=== PATIENT | male | born 1985 | race Caucasian/White ===

== ENCOUNTER 2018-05-25 21:32 | Observation (INO) | payer OTHER, SELFPAY ==
[2018-05-25 21:40] VITALS: BP 125/73; PULSE 63; RESP 16; TEMP 36.9; BMI 520.7
--- NOTE | 2018-05-25 22:04 | ED.ABDPAIN ---
HPI - Abdominal Pain General Chief Complaint: Abdominal Pain Stated Complaint: LOW ABD PAIN Time Seen by Provider: 05/25/18 22:04 Source: patient Mode of arrival: ambulatory Limitations: no limitations History of Present Illness HPI narrative: 33-year-old otherwise healthy male presents with a chief complaint of worsening right lower quadrant pain over the course of the day. He has a poor appetite and last ate about 4 hr prior to his arrival. He denies fever but is nauseated with poor appetite. His pain is much worse with motion and improves with rest. He denies any diarrhea or constipation. He denies dysuria, frequency or urgency. He denies any history of the same. He denies any penile discharge. He denies any trauma or injury. MD complaint: abdominal pain Onset (ago): hour(s) Pain Consistency: constant Location: RLQ Severity: moderate Quality: cramping and aching Radiation: none Migration to: no migration Relieving factors: rest Exacerbating factors: movement Associated symptoms: nausea and anorexia Related Data Home Medications Medication Instructions Recorded Confirmed No Known Home Medications 05/26/18 05/26/18 Allergies Allergy/AdvReac Type Severity Reaction Status Date / Time Penicillins Allergy Intermediate HIVES Verified 05/25/18 23:22 Review of Systems Review of Systems All systems reviewed & are unremarkable except as noted in HPI and below Constitutional Reports anorexia, Denies chills, Denies fever(s), Denies lethargy and Denies weakness Eyes Denies change in vision, Denies eye discharge, Denies irritation and Denies loss of vision ENT Ears, Nose, Mouth, and Throat: Denies change in voice, Denies neck pain and Denies sore throat Cardiovascular Denies chest pain, Denies irregular heart rhythm, Denies lightheadedness, Denies palpitations, Denies dyspnea, Denies dyspnea on exertion and Denies orthopnea Respiratory Denies cough, Denies dyspnea, Denies dyspnea on exertion and Denies wheezing Gastrointestinal Gastrointestinal: Reports abdominal pain, Denies change in bowel habits, Denies diarrhea, Reports nausea and Denies vomiting Genitourinary Denies hematuria, Denies flank pain, Denies urinary incontinence and Denies urinary urgency Musculoskeletal Denies neck pain Integumentary/Breasts Denies pruritus, Denies erythema, Denies rash and Denies wounds Neurologic Denies confusion, Denies loss of vision and Denies weakness Psychiatric Denies anxiety, Denies confusion, Denies depression, Denies homicidal ideation and Denies suicidal ideation Endocrine Denies palpitations Hematologic/Lymphatic Denies easy bruising Allergic/Immunologic Denies wheezing PFSH Medical History GERD (gastroesophageal reflux disease) (Acute) Surgical History S/P wrist surgery (Acute) Social History household members: spouse and children Smoking Status: Never smoker Exam Narrative Exam Narrative: 33-year-old male, obviously quite uncomfortable, clutching his right lower abdomen, knees bent Initial Vital Signs Initial Vital Signs: Vital Signs Temperature 98.4 F 05/25/18 21:40 Pulse Rate 63 05/25/18 21:40 Respiratory Rate 16 05/25/18 21:40 Blood Pressure 125/73 05/25/18 21:40 Const General: cooperative, well developed and acute distress Nutritional Appearance: well nourished Orientation: alert, awake, oriented x3 and not confused HENMT Head: normocephalic and atraumatic Ears: external ears normal and TM's normal bilaterally Nose: external nose normal and No nasal discharge Face and sinus: sinuses nontender, face symmetric, no sinus tenderness and No dry mucous membranes Mouth: oral mucosae normal and moist mucous membranes Teeth and gingiva: dentition normal Throat: tonsils normal and uvula midline Eyes General: appearance normal, both eyes and all related structures Eyelids: eyelids normal Conjunctivae: conjunctivae normal Sclera: sclerae normal Pupils: PERRL EOM: EOM intact bilaterally Resp Effort & Inspection: normal respiratory effort, able to speak in complete sentences, no respiratory distress and no use of accessory muscles Auscultation: clear to auscultation bilaterally, no rales, no rhonchi and no wheezes Cardio Rate: regular rate Rhythm: regular rhythm Heart Sounds: no click, no gallops, no murmurs and no rubs Pulses: normal peripheral pulses GI Inspection: normal to inspection Palpation: soft and tender (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, psoas, Rovsing's, localized peritonitis and pain with heel tap) Penis: normal penis Scrotum: scrotum normal Testes: normal Other: Patient examined while standing in no hernia present Back/Spine/Pelvis Back: No CVA tenderness Cervical Spine: cervical ROM normal and No pain with cervical ROM Thoracic/Lumbar Spine: thoracic and lumbar spine normal to inspection Skin General: no rashes or lesions noted, No jaundice and No petechiae Neuro General: alert, oriented x3, gait normal and no focal motor deficits Speech: speech normal Extrem General: full ROM, no clubbing, cyanosis or edema, no pedal edema and no calf tenderness Course Orders Ordered: ED Orders 05/25/18 22:21 CT abdomen pelvis w con Stat 05/26/18 01:39 Complete Blood Count AUTO DIFF Stat 05/26/18 04:28 Education, smoking cessation ONGOING Acetaminophen (Tylenol) 650 mg PO Q6HR PRN PRN Reason: As Needed for Fever/Mild Pain Last Admin: 05/26/18 06:05 Dose: 650 mg Sodium Chloride (Normal Saline 0.9%) 1,000 mls @ 100 mls/hr IV CONT TENA Last Admin: 05/26/18 04:59 Dose: 100 mls/hr Ketorolac Tromethamine (Toradol) 30 mg IV Q6HR PRN PRN Reason: Pain, Moderate (4-6) Stop: 05/31/18 04:30 Ondansetron HCl (Zofran) 4 mg IV Q8HR PRN PRN Reason: Nausea And Vomiting Last Admin: 05/26/18 06:54 Dose: 4 mg Pantoprazole Sodium (Protonix) 20 mg PO 0600 TENA Last Admin: 05/26/18 06:05 Dose: 20 mg Discontinued Medications Fentanyl (Sublimaze) 100 mcg IV NOW ONE Stop: 05/26/18 02:16 Last Admin: 05/26/18 02:25 Dose: 100 mcg Hydromorphone HCl (Dilaudid) 1 mg IV NOW ONE Stop: 05/25/18 22:12 Last Admin: 05/25/18 22:23 Dose: 1 mg Hydromorphone HCl (Dilaudid) 1 mg IV NOW ONE Stop: 05/25/18 22:49 Last Admin: 05/25/18 22:50 Dose: 1 mg Hydromorphone HCl (Dilaudid) 1 mg IV NOW ONE Stop: 05/26/18 00:17 Last Admin: 05/26/18 00:17 Dose: 1 mg Sodium Chloride (Normal Saline 0.9%) 1,000 mls @ 1,000 mls/hr IV BOLUS ONE Stop: 05/25/18 23:10 Last Infusion: 05/25/18 23:24 Dose: 0 mls/hr Admin: 05/25/18 22:23 Dose: 1,000 mls/hr Sodium Chloride (Normal Saline 0.9%) 1,000 mls @ 1,000 mls/hr IV BOLUS ONE Stop: 05/25/18 23:19 Last Admin: 05/25/18 23:00 Dose: Not Given Ketorolac Tromethamine (Toradol) 15 mg IV NOW ONE Stop: 05/26/18 03:40 Last Admin: 05/26/18 04:00 Dose: 15 mg Ketorolac Tromethamine (Toradol) 30 mg IV QID TENA Ondansetron HCl (Zofran) 4 mg IV Q4HR PRN PRN Reason: Nausea And Vomiting Last Admin: 05/25/18 22:23 Dose: 4 mg Ondansetron HCl (Zofran) 4 mg IV Q4HR PRN PRN Reason: Nausea And Vomiting Reevaluation(s) Reevaluation #1: Patient is physical exam is very concerning for appendicitis. Repeat doses of pain medications are not helping. Reevaluation #2: CT was unremarkable for appendicitis or other bothersome findings, initial white count remarkable, will repeat Vital Signs - 8 hr 05/26/18 00:20 05/26/18 04:25 Temperature 98.3 F 97.7 F Pulse Rate 65 61 Respiratory Rate 16 16 Blood Pressure 129/70 Blood Pressure [Left Arm] 126/73 Pulse Oximetry 100 100 MDM - Abdominal Pain Lab Data Result diagrams: 05/26/18 01:39 05/25/18 22:00 Lab Results 05/25/18 05/25/18 05/26/18 Range/Units 22:00 22:00 01:39 WBC 9.6 10.7 (4.5-11.0) X10^3/uL RBC 5.28 5.14 (4.5-5.9) X10^6/uL Hgb 16.5 15.9 (13.5-17.5) g/dL Hct 46.0 44.2 (41-53) % MCV 87.1 86.0 (80-100) fL MCH 31.3 30.9 (26-34) PG MCHC 36.0 35.9 (30-36) % RDW 13.0 13.1 (11.6-14.8) % Plt Count 186 170 (150-400) X10^3/uL Neut % (Auto) 64.4 70.7 (50-75) % Lymph % (Auto) 25.1 18.5 L (25-40) % [place] % (Auto) 8.5 9.6 (3-14) % Eos % (Auto) 1.5 L 0.6 L (2-4) % Baso % (Auto) 0.5 0.6 (0-2) % Neut # (Auto) 6200 H 7600 H (3585-4905) /uL Sodium 146 H (137-145) mmol/L Potassium 3.9 (3.4-5.1) mmol/L Chloride 104 (98-107) mmol/L Carbon Dioxide 28 (22-32) mmol/L BUN 17 (9-20) mg/dL Creatinine 1.10 (0.66-1.25) mg/dL Estimated GFR > 60.0 (>60) mL/min BUN/Creatinine Ratio 15.5 (6-22) Glucose 94 (70-100) mg/dL Calcium 9.8 (8.4-10.2) mg/dL Total Bilirubin 0.6 (0.2-1.3) mg/dL AST 22 (17-59) IU/L ALT 23 (21-72) IU/L Alkaline Phosphatase 51 (38-126) U/L Total Protein 8.0 (6.3-8.2) g/dL Albumin 4.9 (3.5-5.0) g/dL Globulin 3.1 (1.7-4.1) g/dL Albumin/Globulin Ratio 1.6 (1.0-2.8) Lipase 82 (23-300) U/L Point of care testing: Urine Dip Bedside Urine Glucose Negative Bedside Urine Bilirubin - Negative Bedside Urine Ketone - Negative Urine Specific [place] 1.015 Bedside Urine Occult Blood - Negative Bedside Urine pH 7.0 Bedside Urine Protein - Negative Bedside Urine Urobilinogen - Negative Bedside Urine Nitrite - Negative Bedside Urine Leukocytes - Negative Esterase Discharge Plan Departure Patient Disposition: Admitted as Observation Clinical Impression: Intractable abdominal pain Discharge Date/Time: 05/26/18 04:20 Interventions: ED Discharge Assessment Last Done: 05/26/18 04:12 Admit Date/Time: 05/26/18 04:08 Admit Provider: Sacha Szymanski
--- NOTE | 2018-05-25 22:21 | DI.CT.S_ITS ---
PROCEDURE: CT ABDOMEN PELVIS W CON INDICATIONS: severe RLQ pain, guarding, rebound, appy? TECHNIQUE: After the administration of intravenous contrast, 5 mm thick sections acquired from the diaphragm to the symphysis. 5 mm coronal and sagittal reformats were acquired. For radiation dose reduction, the following was used: automated exposure control, adjustment of mA and/or kV according to patient size. COMPARISON: None. FINDINGS: Image quality: Excellent. ABDOMEN: Lung bases: Lung bases are clear. Heart size is normal. Solid organs: Liver is normal in size. 6 mm hypodense area involving right lobe of liver is seen and is too small to characterize. Gallbladder is within normal limits.. Biliary system is non dilated. Pancreas enhances normally. Spleen is normal in size and enhancement. No adrenal nodules. Kidneys demonstrate normal size and enhancement, without hydronephrosis. Peritoneum and bowel: Bowel loops demonstrate normal wall thickness and caliber. No free fluid or air. Nodes and vessels: No retroperitoneal or mesenteric adenopathy by size criteria. Aorta and inferior vena cava are normal in size. Miscellaneous: No ventral hernias. PELVIS: Genitourinary: Bladder wall thickness is normal. Miscellaneous: No inguinal hernias or adenopathy. Bones: No suspicious bony lesions. No vertebral body compression fractures. IMPRESSION: No acute inflammatory process within the abdomen or pelvis. No finding to explain patient's symptoms. Dictated by: Elder Lopez M.D. on 05/26/2018 at 8:51 Approved by: Elder Lopez M.D. on 05/26/2018 at 8:54
[2018-05-25] MEDS: HYDROMORPHONE 1 MG INJ IV ×2 (22:23→22:50)
[2018-05-25] MEDS: SODIUM CHLORIDE 0.9% 1,000 ML 1000 ML IV (22:23)
[2018-05-25] MEDS: ONDANSETRON 4 MG/2 ML INJ IV (22:23)
[2018-05-25 22:26] LABS: Add Manual Diff / Slide Review NO; Basophils Percent Auto 0.5 % (0-2); Eosinophils Percent Auto 1.5 % (2-4); Hemoglobin 16.5 g/dL (13.5-17.5); Lymphocytes Percent Auto 25.1 % (25-40); Mean Corpuscular Hemoglobin 31.3 PG (26-34); Mean Corpuscular Volume 87.1 fL (80-100); Monocytes Percent Auto 8.5 % (3-14); Neutrophils Absolute Auto 6200 /uL (3000-5900); Neutrophils Percent Auto 64.4 % (50-75); Platelet Count 186 X10^3/uL (150-400); Red Blood Cell Count 5.28 X10^6/uL (4.5-5.9); White Blood Cell Count 9.6 X10^3/uL (4.5-11.0)
[2018-05-25 22:35] LABS: Alanine Aminotransferase 23 IU/L (21-72); Albumin 4.9 g/dL (3.5-5.0); Albumin Globulin Ratio 1.6 (1.0-2.8); Alkaline Phosphatase 51 U/L (38-126); Aspartate Aminotransferase 22 IU/L (17-59); BUN Creatinine Ratio 15.5 (6-22); Bilirubin Total 0.6 mg/dL (0.2-1.3); Blood Urea Nitrogen 17 mg/dL (9-20); Calcium 9.8 mg/dL (8.4-10.2); Carbon Dioxide 28 mmol/L (22-32); Chloride 104 mmol/L (98-107); Estimated Glomerular Filt Rate > 60.0 mL/min (>60); Globulin 3.1 g/dL (1.7-4.1); Glucose 94 mg/dL (70-100); HEMOLYSIS < 15 (0-50); Lipase 82 U/L (23-300); Potassium 3.9 mmol/L (3.4-5.1); Sodium 146 mmol/L (137-145)
[2018-05-25 22:51] VITALS: BP 118/81; PULSE 72; RESP 16; O2SAT 98
[2018-05-26] VITALS (19 sets, daily range): BP systolic 99–141; BP diastolic 50–83; PULSE 56–89; RESP 12–19; TEMP 36.3–36.9; O2SAT 93–100; BMI 226.9
--- NOTE | 2018-05-26 | PATH_ITS ---
[facility] Accession Number: [id number] . 01 Material submitted: . APPENDIX . 01 Diagnosis: Appendix, Appendectomy: Acute appendicitis. MRV/05/29/2018 . 01 Electronically signed: . Riena Garcia MD, Pathologist NPI- [id number] . 01 Gross description: . Received in formalin, labeled with the patient's name and appendix is a 3.9 cm in length by 0.8 cm in diameter, intact, brown appendix. The attached landin-brown mesoappendix measures 4.5 x 2.1 x 1.5 cm. The serosa is smooth and no perforation is noted. Sectioning reveals a lumen measuring 0.2 cm in maximum diameter with landin-brown mucosa. No fecalith is identified within the lumen. The resection margin is inked black and the specimen representatively submitted as follows: A1 - bisected tip, resection margin, and additional cross sections. (ZABRINA:[id number]) /MRV . 01 Pathologist provided ICD-10: K35.80 . 01 CPT . 606222 Performed at: [facility] [address], [place], [place] [id number] MD Cain Alvarado MD Phone: [phone]
[2018-05-26] MEDS: HYDROMORPHONE 1 MG INJ IV (00:17)
[2018-05-26 01:48] LABS: Add Manual Diff / Slide Review NO; Basophils Percent Auto 0.6 % (0-2); Eosinophils Percent Auto 0.6 % (2-4); Hematocrit 44.2 % (41-53); Hemoglobin 15.9 g/dL (13.5-17.5); Lymphocytes Percent Auto 18.5 % (25-40); Mean Corpuscular HGB Conc 35.9 % (30-36); Mean Corpuscular Hemoglobin 30.9 PG (26-34); Monocytes Percent Auto 9.6 % (3-14); Neutrophils Absolute Auto 7600 /uL (3000-5900); Neutrophils Percent Auto 70.7 % (50-75); Platelet Count 170 X10^3/uL (150-400); Red Blood Cell Count 5.14 X10^6/uL (4.5-5.9); Red Cell Distribution Width 13.1 % (11.6-14.8); White Blood Cell Count 10.7 X10^3/uL (4.5-11.0)
[2018-05-26] MEDS: fentaNYL 100 MCG/2 ML INJ IV (02:25)
[2018-05-26] MEDS: KETOROLAC 60 MG/2 ML VIAL 15 MG IV (04:00)
[2018-05-26] MEDS: SODIUM CHLORIDE 0.9% 1,000 ML 100 ML IV (04:59)
[2018-05-26] MEDS: PANTOPRAZOLE 20 MG TABLET PO (06:05)
[2018-05-26] MEDS: ACETAMINOPHEN 325 MG TABLET 650 MG PO (06:05)
--- NOTE | 2018-05-26 06:40 | PC.NURSE ---
admit note pt arrived on unit 0430 via stretcher. Able to ambulate to bed. AOx3. Complaining of pain /. Denies N/V at time of arrival. Pain has increased 04/01, provided prn tylenol. VS stable. Admission assessment completed. Oriented to room. Call light in reach. Bed alarm on.
[2018-05-26] MEDS: ONDANSETRON 4 MG/2 ML INJ IV ×2 (06:54→21:56)
[2018-05-26] MEDS: KETOROLAC 30 MG/ML VIAL IV (07:50)
--- NOTE | 2018-05-26 08:09 | PC.NURSE ---
Addendum entered by Luisa Salazar R.N. 05/26/18 13:20: Saline locked. Off floor to surgery at this time. Consent signed, witnessed and on chart. Original Note: Addendum entered by Luisa Salazar R.N. 05/26/18 12:13: This gag writer spoke to Dr Szymanski and updated re: patient's pain as described below. Anticipate orders. Original Note: Addendum entered by Luisa Salazar R.N. 05/26/18 11:23: Warm blankets provided to try on his belly in lieu of pain meds. Given oral swabs r/t NPO status. Patient was seen by MD Ng, wants patient NPO and will be back up again to evaluate whether or not he needs to operate. Patient made aware of the same. Original Note: Addendum entered by Luisa Salazar R.N. 05/26/18 11:01: Pain: RLQ abd pain only came down to 5/10 after admin of Toradol, but is back up to 7/10. Patient appears uncomfortable- grimacing and guarding. It's too early to give Tylenol or Toradol. Dr Szymanski in ICU- message given to him, via set up and charger Cristina, that patient needs some other option for pain medicine. Awaiting call back or new orders. Original Note: Shift summary: Awake and alert, oriented X3. Resting quietly on bed- on his right side with knees curled up to his chest. Reports RLQ abd pain 7/10- medicated with IV Toradol for the same. Abdomen soft, tender. BT+ hypoactive. Reports nausea resolved with Zofran given earlier. NPO status. Lungs CTA, HRR. SpO2 on RA 99%. IVF per orders, site in L AC WNL. Encouraged to make needs known, and to call for SBA OOB. Light in reach. Dr Szymanski in to see at this time.
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
[2018-05-26 12:08] LABS: Add Manual Diff / Slide Review NO; Basophils Percent Auto 0.5 % (0-2); Eosinophils Percent Auto 1.3 % (2-4); Hematocrit 42.1 % (41-53); Hemoglobin 14.7 g/dL (13.5-17.5); Lymphocytes Percent Auto 27.5 % (25-40); Mean Corpuscular Hemoglobin 30.5 PG (26-34); Mean Corpuscular Volume 87.2 fL (80-100); Monocytes Percent Auto 10.8 % (3-14); Neutrophils Absolute Auto 3700 /uL (3000-5900); Neutrophils Percent Auto 59.9 % (50-75); Platelet Count 156 X10^3/uL (150-400); Red Blood Cell Count 4.82 X10^6/uL (4.5-5.9); Red Cell Distribution Width 13.2 % (11.6-14.8); White Blood Cell Count 6.1 X10^3/uL (4.5-11.0)
[2018-05-26] MEDS: HYDROMORPHONE 2 MG INJ 1 MG IV (12:18)
[2018-05-26] MEDS: LACTATED RINGERS 1,000 ML 42 ML IV (13:30)
[2018-05-26] MEDS: CEFOTETAN 2 GM/50 ML PIGGYBACK IV (13:31)
--- NOTE | 2018-05-26 13:33 | PM.CN ---
History of Present Illness Date Patient Seen: 05/26/18 Time Patient Seen: 11:33 Chief complaint: LOW ABD PAIN Reason for consult: Right lower quadrant pain Requesting provider: Sacha Szymanski Narrative: Patient is a gentleman with a 2 day history of severe right lower quadrant pain. He has never had anything like this. No history of kidney stones. Anorexia and nausea. He thinks the nausea may just be due to the pain but he is not sure. Bowel function normal prior to the pain. No dysuria or blood in his urine. Has not seen any bulges. Pain is a 10/10 requiring injectable narcotics relieved. [facility] Medical History GERD (gastroesophageal reflux disease) (Acute) Surgical History S/P wrist surgery (Acute) Family History Other Kidney stones Social History household members: significant other and children Smoking Status: Never smoker Meds Home Medications Medication Instructions Recorded Confirmed Type No Known Home Medications 05/26/18 05/26/18 History Allergies Allergy/AdvReac Type Severity Reaction Status Date / Time Penicillins Allergy Intermediate HIVES Verified 05/25/18 23:22 Review of Systems Review of Systems Patient denies chills night sweats weight loss. No visual difficulties double vision pain is eyes earache sore throat. No trouble swallowing. No tooth aches. No Cough cold or asthma. No chest pain or heart murmurs. He has not had kidney stones the family members have. No blood in his urine. No dysuria. No black or bloody bowel movements. No hematemesis. No seizures or blackouts. No psychiatric illnesses like depression or anxiety. No unusual bruising or bleeding. Exam Vital Signs (past 8 hours): - 05/26/18 08:04 05/26/18 08:06 05/26/18 11:36 Temperature 98.0 F 98.5 F Pulse Rate 62 80 Respiratory Rate 16 18 Blood Pressure 108/50 L 133/76 Pulse Oximetry 99 98 94 Oxygen Delivery Method Room Air Oxygen Flow Rate 0 Narrative Exam Narrative: Think cooperative gentleman in no apparent distress. Eyes are nonicteric pupils are equal round reactive to light. Conjunctivae are pink. Ears without lesion. Nasal septum midline. No polyps. Oral mucosa is dry no open lesions. Teeth are intact. Lips are not split. The there are no nodes in neck or supraclavicular areas. Trachea is midline and mobile. Thyroid is not enlarged. No bruits in the neck. No tenderness in thyroid. Lungs are clear to auscultation without rales or rhonchi. Equal percussion. Heart regular rate and rhythm without murmur or gallop. Abdomen is scaphoid and soft. He has localized tenderness the right lower quadrant. This is not in the abdominal wall. There are no hernias in the area. I can appreciate no redness of the abdominal wall. Except for the right lower quadrant everything else is soft and nontender. There are no masses. Penis is without lesion. Testes without mass. No right inguinal hernia. Patient is alert and oriented x3. Speech rate and content are appropriate. Objective Labs Result Diagrams: 05/26/18 12:05 05/25/18 22:00 Labs: Laboratory Results - last 24 hr 05/25/18 05/25/18 05/26/18 22:00 22:00 01:39 WBC 9.6 10.7 RBC 5.28 5.14 Hgb 16.5 15.9 Hct 46.0 44.2 MCV 87.1 86.0 MCH 31.3 30.9 MCHC 36.0 35.9 RDW 13.0 13.1 Plt Count 186 170 Neut % (Auto) 64.4 70.7 Lymph % (Auto) 25.1 18.5 L [place] % (Auto) 8.5 9.6 Eos % (Auto) 1.5 L 0.6 L Baso % (Auto) 0.5 0.6 Neut # (Auto) 6200 H 7600 H Sodium 146 H Potassium 3.9 Chloride 104 Carbon Dioxide 28 BUN 17 Creatinine 1.10 Estimated GFR > 60.0 BUN/Creatinine Ratio 15.5 Glucose 94 Calcium 9.8 Total Bilirubin 0.6 AST 22 ALT 23 Alkaline Phosphatase 51 Total Protein 8.0 Albumin 4.9 Globulin 3.1 Albumin/Globulin Ratio 1.6 Lipase 82 05/26/18 12:05 WBC 6.1 RBC 4.82 Hgb 14.7 Hct 42.1 MCV 87.2 MCH 30.5 MCHC 35.0 RDW 13.2 Plt Count 156 Neut % (Auto) 59.9 Lymph % (Auto) 27.5 [place] % (Auto) 10.8 Eos % (Auto) 1.3 L Baso % (Auto) 0.5 Neut # (Auto) 3700 Sodium Potassium Chloride Carbon Dioxide BUN Creatinine Estimated GFR BUN/Creatinine Ratio Glucose Calcium Total Bilirubin AST ALT Alkaline Phosphatase Total Protein Albumin Globulin Albumin/Globulin Ratio Lipase Assessment & Plan Plan: Assessment/Plan Narrative: Patient with severe right lower quadrant pain and tenderness. Cause is unclear. I reviewed his CT scan. No findings on it. He has very little intraperitoneal fat so it is possible he has occur early appendicitis that is just not showing because there is no fat to become inflamed. He could have a twisted epiploica. Does not appear to have any evidence of intestinal ischemia or intestinal inflammation. Has no known reason to have an embolus and no evidence the 1 has occurred. I see nothing in his musculature that is unusual. There is no hematoma and no bleeding. No bruising was abdominal wall to suggest trauma. No acute back pain or tenderness. No spigelian hernia appreciated. Or blood cell count is normal. There is no enlarged lymph nodes. Patient is now 2 days into this severe abdominal pain. It is unlikely that we can discharge him without correcting that over the prior Thal G is and is not clear at this time with that pathology is. Will proceed to laparoscopy. It will at least answer the question that there is a surgical cause of his pain. I discussed the operation with him. Would plan to do an appendectomy. Risks of bleeding, infection, hernia discussed. All questions answered. We may not have a diagnosis at the completion but we will attempt to make 1 that accounts for his symptomatology and findings.
--- NOTE | 2018-05-26 13:43 | PM.PREOP ---
Pre-operative Note Interval Note Pre-op Check: Yes History & Physical exam performed today by Physician Changes: No
--- NOTE | 2018-05-26 14:00 | SUR.OPER ---
Supine on padded OR bed, head on pillow, arm padded and tucked at side, legs uncrossed, safety belt at thigh, tape over blanket over lower legs .
[2018-05-26] MEDS: BUPIVACAINE 0.5% (PF) VIAL 30 ML INJ (14:07)
--- NOTE | 2018-05-26 14:09 | CM.DPC ---
DCP/Note: Faxed initial clinical to [facility] at [phone]. SHIVA Ogden
[2018-05-26] MEDS: fentaNYL 100 MCG/2 ML INJ 50 MCG IV (15:32)
--- NOTE | 2018-05-26 15:33 | PM.OP.1 ---
Operative Date/Time/Diagnoses Date of procedure: 05/26/18 Time of procedure: 15:18 Pre-op diagnosis: Right lower quadrant pain. Cause unclear. Post-op diagnosis: same Procedure & Clinicians Procedure: Laparoscopy. Incidental appendectomy. Same procedure as scheduled: Yes Indications: Intractable right lower quadrant pain Surgeon: Julio Ng Click Yes if Unassisted: Yes Anesthesia Type: General Operative Notes Findings: No cause was of symptoms found on laparoscopy. Please see details in the operative report. Closure Type: primary Specimen(s): other (Appendix) Implants & Drains: None Blood products transfused: none Procedure in detail: The patient was placed supine on the operating room table and underwent general endotracheal anesthesia. He was prepped and draped in the usual fashion after placing a Rust catheter. Local anesthetic was infiltrated and a small incision made beneath the umbilicus. It was carried down under direct vision in the peritoneal cavity. Stay sutures of 0 Polysorb were placed in the fascia. And a son cannula was inserted the abdomen was insufflated. Two additional ports were placed 1 in the suprapubic area and 1 in the left lower quadrant. The appendix was identified is a normal appearing structure with unusual adhesions of the mesoappendix to the lateral wall. I ran the small bowel from a the ileocecal valve to the ligament of Treitz. I saw no abnormalities. Great care was taken not to actually touch the bowel with the clamps. The right colon was examined and was normal in appearance. There were no twisted epiploic a seen. The gallbladder was normal in appearance in the anterior gastric wall was normal in appearance. I examined the pelvis and the sigmoid was unremarkable. There was no fluid in the pelvis. The anterior abdominal wall was unremarkable as were the anterior wall of the pelvis. There was no evidence of any hernias. As there was no obvious cause of his symptomatology I chose to remove his appendix to remove that as a possible diagnosis. In fact the only abnormality I had seen were adhesions of the mesoappendix to the abdominal wall. These were taken down sharply. The mesoappendix was divided to tying the artery with a 2 0 Vicryl suture. The base the appendix was tied with the same material and distal to this the appendix was transected and immediately placed into a bag without any spillage. The specimen was removed and submitted. The mucosa of the appendix was cauterized. The gutter was examined and the pelvis irrigated and suctioned free of fluid. The ports were all removed. Two 0 Maxon was placed in the umbilical fascia between the 2 stay sutures which were then tied. The wounds were irrigated and 4 0 Polysorb subcuticular stitches were used to close the skin. Steri-Strips and dressing were applied. Patient was awakened and taken to recovery area in good condition. There are no apparent complications. Complications: none Condition: stable Disposition: PACU Plan for aftercare: Will follow up in the office.
[2018-05-26] MEDS: DEXTROSE 5%-0.45% NS 1,000 ML 125 ML IV (16:46)
[2018-05-26] MEDS: MORPHINE 4 MG/ML INJ IV ×3 (17:01→21:53)
[2018-05-26] MEDS: OXYCODONE/ACETAMINOPHEN 5/325 TABLET 2 TAB PO (20:26)
[2018-05-26] MEDS: GABAPENTIN 300 MG CAPSULE PO (20:26)
[2018-05-27] VITALS (7 sets, daily range): BP systolic 104–127; BP diastolic 57–80; PULSE 55–66; RESP 14–20; TEMP 36.4–36.8; O2SAT 95–98
[2018-05-27] MEDS: MORPHINE 4 MG/ML INJ IV ×5 (00:09→20:05)
[2018-05-27] MEDS: DEXTROSE 5%-0.45% NS 1,000 ML 125 ML IV ×3 (00:24→16:17)
[2018-05-27] MEDS: OXYCODONE/ACETAMINOPHEN 5/325 TABLET 2 TAB PO ×3 (03:42→14:34)
[2018-05-27] MEDS: IBUPROFEN 600 MG TABLET PO ×3 (05:18→19:39)
[2018-05-27] MEDS: PANTOPRAZOLE 20 MG TABLET PO (06:33)
[2018-05-27] MEDS: ACETAMINOPHEN 325 MG TABLET 650 MG PO ×2 (06:34→20:56)
[2018-05-27] MEDS: ENOXAPARIN 40 MG/0.4 ML SYRINGE SUBCUT (08:17)
[2018-05-27] MEDS: GABAPENTIN 300 MG CAPSULE PO ×2 (08:17→20:56)
--- NOTE | 2018-05-27 08:50 | PC.NURSE ---
Addendum entered by Luisa Salazar R.N. 05/27/18 15:28: Late entry: Patient reported that I don't want to drink because it hurts when I pee. This bid writer emphasized importance of taking enough PO fluids. Then I spoke w/ Dr Ng and let him know. Received orders for UA and pyridium- UA collected, pyridium given. Original Note: Addendum entered by Luisa Salazar R.N. 05/27/18 11:03: Now rates abd pain 5/10. Reports Morphine did help a little bit and the ice is actually helping a lot. Medicated with Ibuprofen per e-mar. Encouraged getting OOB/ambulation, which he's not feeling up to yet. Wants to try to rest. Light in reach. Original Note: Addendum entered by Luisa Salazar R.N. 05/27/18 09:52: Continues to complain of 7/10 abdominal pain despite having taken Percocet. Medicated with PRN IV Morphine per e-mar. Given ice packs to try on his belly. Still has not started on his breakfast. Resting in bed, denies needs now. Voiding per urinal. Will encourage ambulation/OOB this morning. Original Note: Shift summary: Awake and alert, resting quietly in bed. C/O his abdomen feeling really sore, rated pain 7/10- medicated with 2 tabs Percocet and given warm blanket for his belly. 3 band aids at abd lap sites C/D/I. BT+, hypoactive. Denies flatus. Denies N/V. He is feeling hungry, but wanted to wait until the pain meds kick in before eating breakfast. Able to make needs known and calls appropriately. Light in reach.
[2018-05-27] MEDS: PHENAZOPYRIDINE 100 MG TABLET PO ×2 (14:44→20:56)
[2018-05-27] MEDS: ONDANSETRON 4 MG/2 ML INJ IV (14:46)
[2018-05-27 15:24] LABS: Appearance Urine UA CLEAR; Bacteria Urine None Seen; Bilirubin Urine UA NEGATIVE (NEGATIVE); Color Urine UA YELLOW; Glucose Urine UA NEGATIVE (Normal); Ketones Urine UA NEGATIVE (NEGATIVE); Leukocyte Esterase Urine UA NEGATIVE (NEGATIVE); Nitrite Urine UA Negative (Negative); Occult Blood Urine UA NEGATIVE (Negative); Protein Urine UA NEGATIVE (Negative); RBC Urine None Seen (0-5/HPF); Specific Gravity Urine UA 1.015 (1.000-1.035); Urobilinogen Urine UA 0.2 E.U./dL (0.2); WBC Urine None Seen (0-5/HPF)
[2018-05-27 15:31] LABS: Urine Comments Microscopic Normal
--- NOTE | 2018-05-27 15:38 | PC.NURSE ---
Assumed care of pt from outgoing shift at 1500. Pt awake and alert. compliant with nursing assessment. complains of left lower abdominal pain; band aids c/d/i. ice applied to left lower abdomen. belongings and call light within reach.
--- NOTE | 2018-05-27 16:58 | PM.PN.1 ---
Subjective Date Patient Seen: 05/27/18 Time Patient Seen: 07:58 Interval history: Follow-up on patient 33 years of age who was admitted with very focal fairly severe grade right lower quadrant abdominal pain. Dental surgeon consulted and took patient to surgery. Appendix was removed. Patient is postop day 1. Today. Patient is doing reasonably well. Diet advancement and plan for discharge as recommended by general surgeon. Exam Vital Signs (past 8 hours): - 05/27/18 12:09 05/27/18 15:50 05/27/18 16:06 Temperature 98.2 F 97.9 F 97.9 F Pulse Rate 65 63 63 Respiratory Rate 15 16 16 Blood Pressure 115/80 127/77 127/77 Pulse Oximetry 98 96 96 Oxygen Delivery Method Room Air Oxygen Flow Rate 0 Narrative Exam Narrative: General appearance patient is awake alert with moderate abdominal discomfort during my exam. Patient notes the pain is tolerable Psychiatric well-oriented time place person mood is a bit anxious and stressed due to the abdominal pain. Respiratory clear to auscultation with good airflow no wheezes no crackles Cardiovascular is regular rate rhythm no murmur rubs or gallops PMI is nondisplaced pulses +3 to extremities GI tenderness noted to the abdomen across the lower abdomen region. Bowel sounds are noted no guarding no bruits Neurologic no focal neurologic changes cranial nerves 2-12 grossly intact Objective Labs Result Diagrams: 05/26/18 12:05 05/25/18 22:00 Labs: Laboratory Results - last 24 hr 05/27/18 14:55 Urine Color Yellow Urine Appearance Clear Urine pH 6.0 Ur Specific [place] 1.015 Urine Protein Negative Urine Glucose (UA) Negative Urine Ketones Negative Urine Occult Blood Negative Urine Nitrate Negative Urine Bilirubin Negative Urine Urobilinogen 0.2 Ur Leukocyte Esterase Negative Urine RBC None seen Urine WBC None seen Urine Bacteria None seen Ur Culture Indicated? Not Reportable Micro UA Comment Microscopic normal Assessment & Plan Plan: Assessment/Plan Narrative: 1. Right lower quadrant abdominal pain on admission Note patient is status post appendectomy postop day 1.. Continue analgesic therapy as prescribed. General surgeon to determine when to discharge and advance the diet. 2. Nausea without vomiting Antiemetic therapy as needed Discharge planning General surgeon will likely recommend for discharge in the next day or so. Time Spent With Patient Time with patient: 25 - 35 minutes (25 min) Quality VTE Deep Vein Thrombosis/Pulmonary Embolism Present on Admission: No
--- NOTE | 2018-05-27 19:20 | P.PN_ITS ---
Subjective Date Patient Seen: 05/27/18 Time Patient Seen: 12:17 Interval history: Postop day 1. The patient is sore. Very resistant moving. Preoperative pain or ever is resolved. He now has mostly incisional pain. Not very hungry and has taken in poorly Exam Vital Signs (past 8 hours): - 05/27/18 12:09 05/27/18 15:50 05/27/18 16:06 Temperature 98.2 F 97.9 F 97.9 F Pulse Rate 65 63 63 Respiratory Rate 15 16 16 Blood Pressure 115/80 127/77 127/77 Pulse Oximetry 98 96 96 Oxygen Delivery Method Room Air Oxygen Flow Rate 0 Narrative Exam Narrative: Lungs are clear. It dressings are dry. Abdomen is flat. No unusual tenderness. No redness. Vital signs noted. Objective Labs Result Diagrams: 05/26/18 12:05 05/25/18 22:00 Labs: Laboratory Results - last 24 hr 05/27/18 14:55 Urine Color Yellow Urine Appearance Clear Urine pH 6.0 Ur Specific [place] 1.015 Urine Protein Negative Urine Glucose (UA) Negative Urine Ketones Negative Urine Occult Blood Negative Urine Nitrate Negative Urine Bilirubin Negative Urine Urobilinogen 0.2 Ur Leukocyte Esterase Negative Urine RBC None seen Urine WBC None seen Urine Bacteria None seen Ur Culture Indicated? Not Reportable Micro UA Comment Microscopic normal Assessment & Plan Post-op Postoperative Procedures Operation Date: 05/26/18 13:30 Actual Procedures Side Surgeon p LAPAROSCOPY, INCIDENTAL APPENDECTOMY Not Applicable Julio Ng MD Postoperative day: 1 Postoperative status narrative: Discussed intraoperative findings with the patient. Can't send him home until he eats better. Encouraged him to do so. He seems unusually sensitive to pain. Urged him to do better and will hopefully discharge in the morning. Quality VTE Deep Vein Thrombosis/Pulmonary Embolism Present on Admission: No
[2018-05-27] MEDS: KETOROLAC 30 MG/ML VIAL IV (20:56)
[2018-05-28] VITALS: BP 125/75; PULSE 55; RESP 18; TEMP 36.6; O2SAT 95
[2018-05-28] MEDS: DEXTROSE 5%-0.45% NS 1,000 ML 125 ML IV ×2 (00:30→08:39)
[2018-05-28 03:40] VITALS: BP 134/78; PULSE 54; RESP 15; TEMP 36.5; O2SAT 95
[2018-05-28] MEDS: PANTOPRAZOLE 20 MG TABLET PO (06:28)
[2018-05-28] MEDS: HYDROMORPHONE PCA 6 MG/30 ML PCA.VIAL IV ×2 (06:38→14:35)
[2018-05-28] MEDS: KETOROLAC 30 MG/ML VIAL IV ×2 (06:40→16:07)
[2018-05-28 07:56] VITALS: BP 128/77; PULSE 55; RESP 15; TEMP 36.5; O2SAT 95
[2018-05-28] MEDS: GABAPENTIN 300 MG CAPSULE PO (08:35)
[2018-05-28] MEDS: ENOXAPARIN 40 MG/0.4 ML SYRINGE SUBCUT (08:35)
[2018-05-28] MEDS: PHENAZOPYRIDINE 100 MG TABLET PO ×2 (08:35→14:35)
--- NOTE | 2018-05-28 08:36 | P.PN_ITS ---
Subjective Date Patient Seen: 05/28/18 Time Patient Seen: 08:34 Interval history: Post laparoscopy and incidental appendectomy. He is feeling better this morning. Up eating breakfast. Exam Vital Signs (past 8 hours): - 05/28/18 03:40 05/28/18 07:56 Temperature 97.7 F 97.7 F Pulse Rate 54 L 55 L Respiratory Rate 15 15 Blood Pressure 134/78 128/77 Pulse Oximetry 95 95 Oxygen Delivery Method Room Air Oxygen Flow Rate 0 Narrative Exam Narrative: Wounds look fine. Band-Aids removed. A little blood on the Steri-Strips at the umbilicus. Objective Labs Result Diagrams: 05/26/18 12:05 05/25/18 22:00 Labs: Laboratory Results - last 24 hr 05/27/18 14:55 Urine Color Yellow Urine Appearance Clear Urine pH 6.0 Ur Specific [place] 1.015 Urine Protein Negative Urine Glucose (UA) Negative Urine Ketones Negative Urine Occult Blood Negative Urine Nitrate Negative Urine Bilirubin Negative Urine Urobilinogen 0.2 Ur Leukocyte Esterase Negative Urine RBC None seen Urine WBC None seen Urine Bacteria None seen Ur Culture Indicated? Not Reportable Micro UA Comment Microscopic normal Assessment & Plan Post-op Postoperative Procedures Operation Date: 05/26/18 13:30 Actual Procedures Side Surgeon p LAPAROSCOPY, INCIDENTAL APPENDECTOMY Not Applicable Julio Ng MD Postoperative day: 2 Time Spent With Patient less than 15 minutes Quality VTE Deep Vein Thrombosis/Pulmonary Embolism Present on Admission: No
[2018-05-28 12:06] VITALS: BP 133/83; PULSE 59; RESP 16; TEMP 36.8; O2SAT 95
--- NOTE | 2018-05-28 14:05 | PM.DS.1 ---
History of Present Illness Chief complaint: LOW ABD PAIN Discharge Providers Date of admission: 05/26/18 04:08 Consults: 05/26/18 16:12 Consult to Discharge Planning Routine Comment: Discharge provider: Sacha Szymanski MD Exam Vital Signs (past 8 hours): - 05/28/18 07:56 05/28/18 12:06 Temperature 97.7 F 98.2 F Pulse Rate 55 L 59 L Respiratory Rate 15 16 Blood Pressure 128/77 133/83 Pulse Oximetry 95 95 Oxygen Delivery Method Room Air Oxygen Flow Rate 0 Objective Labs Result Diagrams: 05/26/18 12:05 05/25/18 22:00 Labs: Laboratory Results - last 24 hr 05/27/18 14:55 Urine Color Yellow Urine Appearance Clear Urine pH 6.0 Ur Specific [place] 1.015 Urine Protein Negative Urine Glucose (UA) Negative Urine Ketones Negative Urine Occult Blood Negative Urine Nitrate Negative Urine Bilirubin Negative Urine Urobilinogen 0.2 Ur Leukocyte Esterase Negative Urine RBC None seen Urine WBC None seen Urine Bacteria None seen Ur Culture Indicated? Not Reportable Micro UA Comment Microscopic normal Discharge Plan Discharge Plan Patient Disposition: Home Discharge comment: You had a laparoscopy and removal of her appendix. There were no real abnormalities seen except some scarring in the area of your appendix. You do not have hernias. You have 3 small incisions on her abdominal wall. If you need to reach a doctor after hours, call our office and hold until the mixing and molding machine operator packs up. Discharge Med Rec/Prescriptions Prescriptions: New hydromorphone 2 mg tablet 2 mg PO Q4H PRN (Reason: pain) Qty: 14 RF: 0 naproxen 500 mg tablet 500 mg PO BID Qty: 20 RF: 0 No Action No Known Home Medications RF: 0 Follow up/Referrals: Julio Ng MD [Physician] - (Call our office and make an appointment to see me in about 10 days.) Provider Discharge Instructions Diet: Diet as Tolerated Activity: Do not drive or operate machinery until pain free off medication. You may leisurely walk. Do not lift over 10 lb for 4 weeks. Do not strain. Do not use a pool or tub for at least 2 weeks. You may shower however. Other treatments: Use narcotics sparingly. They may constipate you and therefore you should take a laxative if necessary. Skin/Wound/Dressing Care Report to your healthcare provider any signs of infection, such as:: chills, fever, night sweats and unusual drainage Visit Report/Discharge Packet Visit Report Forms: Stroke Signs & Symptoms Discharge Data Attending Provider: Sacha Szymanski Admit Date/Time: 05/26/18 04:08 Discharges patient from system. Discharge Date/Time: 05/28/18 17:01 Quality VTE Deep Vein Thrombosis/Pulmonary Embolism Present on Admission: No
--- NOTE | 2018-05-30 18:04 | P.DS_ITS ---
History of Present Illness Date Patient Seen: 05/29/18 Time Patient Seen: 12:02 Chief complaint: LOW ABD PAIN Narrative: Patient is gentleman admitted with severe right abdominal pain. No prior history of this pain. Anorexic. CT scan of the abdomen and pelvis was unremarkable. Discharge Providers Date of admission: 05/26/18 04:08 Consults: 05/26/18 16:12 Consult to Discharge Planning Routine Comment: Discharge provider: Julio Ng MD Summary Discharge Diagnosis: Acute appendicitis based on pathology and recovery from operation. Hospital Course: Patient was treated overnight with pain medication. On examination the morning of his operation he had localized tenderness the right lower quadrant. He had a for a very good history for appendicitis and the classic physical exam for it. Because his pain was unrelenting and requiring narcotics and clearly was not getting better he was taken the operating room and underwent a laparoscopy. Though his appendix looked fairly normal there were adhesions to the structures around it and I removed it. Pathology report was consistent with acute appendicitis. His preoperative pain was gone postoperatively and now had incisional pain. He was treated with narcotics for this and ultimately was discharged on oral narcotics to follow up in the office. Status at Discharge Cognitive/behavioral status at discharge: Normal Functional status at discharge: independent ambulation Overall status at discharge: patient is not back to baseline (Pain from the operation is present) Time Spent with Patient Less than 30 minutes Exam Vital Signs (past 8 hours): Oxygen Delivery Method Room Air Oxygen Flow Rate 0 Objective Labs Result Diagrams: 05/26/18 12:05 05/25/18 22:00 Discharge Plan Discharge Plan Patient Disposition: Home Discharge comment: You had a laparoscopy and removal of her appendix. There were no real abnormalities seen except some scarring in the area of your appendix. You do not have hernias. You have 3 small incisions on her abdominal wall. If you need to reach a doctor after hours, call our office and hold until the mixer crane operator packs up. Discharge Med Rec/Prescriptions Prescriptions: New hydromorphone 2 mg tablet 2 mg PO Q4H PRN (Reason: pain) Qty: 14 RF: 0 naproxen 500 mg tablet 500 mg PO BID Qty: 20 RF: 0 No Action No Known Home Medications RF: 0 Follow up/Referrals: Julio Ng MD [Physician] - (Call our office and make an appointment to see me in about 10 days.) Provider Discharge Instructions Diet: Diet as Tolerated Activity: Do not drive or operate machinery until pain free off medication. You may leisurely walk. Do not lift over 10 lb for 4 weeks. Do not strain. Do not use a pool or tub for at least 2 weeks. You may shower however. Other treatments: Use narcotics sparingly. They may constipate you and therefore you should take a laxative if necessary. Skin/Wound/Dressing Care Report to your healthcare provider any signs of infection, such as:: chills, fever, night sweats and unusual drainage Visit Report/Discharge Packet Visit Report Forms: Stroke Signs & Symptoms Discharge Data Attending Provider: Sacha Szymanski Admit Date/Time: 05/26/18 04:08 Discharges patient from system. Discharge Date/Time: 05/28/18 17:01 Quality VTE Deep Vein Thrombosis/Pulmonary Embolism Present on Admission: No
== END 2018-05-28 17:01 | disposition home or self-care (01) ==
LOC: ED 05-26 03:42 → AC 05-26 04:08
PROVIDERS: Specialist; Admitting Provider Internal Medicine; Emergency Provider Emergency Medicine; Visit Provider Internal Medicine
PROC: 0DTJ4ZZ Resection of Appendix, Percutaneous Endoscopic Approach (ICD-10-PCS; CPT 44970; principal; 2018-05-26 13:30)
DX: R10.31 Right lower quadrant pain (principal); K66.0 Peritoneal adhesions (postprocedural) (postinfection); K35.80 Unspecified acute appendicitis
CPT/HCPCS: 44970; 36415; 36591; 74177; 80053; 81001; 81003; 83690; 85025; 87086; 96361; 96374; 96375; 96376; 99283; 99285; G0378; J0330; J1100; J1170; J1650; J1885; J2270; J2405; J2704; J3010; Q9967

== ENCOUNTER 2020-03-17 09:08 | Emergency (ER) | payer OTHER, SELFPAY ==
[2018-05-26 04:38] VITALS: BMI 226.9
[2020-03-17 09:23] VITALS: BP 139/80; PULSE 56; RESP 14; TEMP 36.9; O2SAT 100
--- NOTE | 2020-03-17 10:31 | DI.CT.S_ITS ---
PROCEDURE: CT HEAD/BRAIN WO CON INDICATIONS: headache facial numbness TECHNIQUE: Noncontrast 4.5 mm thick angled axial sections acquired from the foramen magnum to the vertex, with coronal and sagittal reformats. For radiation dose reduction, the following was used: automated exposure control, adjustment of mA and/or kV according to patient size. COMPARISON: None. FINDINGS: Image quality: Excellent. CSF spaces: Basal cisterns are patent. No extra-axial fluid collections. Ventricles are normal in size and shape. There is a 5 mm calcified density in the right frontal area at midline along the falx, and a 9 mm calcified density in the left parietal area on the falx, which could be small meningiomas. Brain: No midline shift. No intracranial masses or hemorrhage. Clements-white matter interface is normal. Skull and face: Calvarium and visualized facial bones are intact, without suspicious lesions. Sinuses: There is a 7 mm soft tissue density in the right ethmoid sinus, compatible with mucus retention cyst or polyp. Mastoids are clear. IMPRESSION: 1. No acute intracranial abnormality. 2. A 7 mm mucus retention cyst or polyp in the right ethmoid sinus. Dictated by: Hany Chua M.D. on 03/17/2020 at 10:42 Approved by: Hany Chua M.D. on 03/17/2020 at 10:57
[2020-03-17] MEDS: ACETAMINOPHEN 325 MG TABLET 650 MG PO ×2 (11:04→14:02)
--- NOTE | 2020-03-17 11:08 | PC.NURSE ---
denies any vision changes. no nausea or vomitting. states a family history of aneuryms
--- NOTE | 2020-03-17 11:48 | ED.HA ---
HPI - Headache <SUSIE SigalaBC - Last Filed: 03/17/20 18:54> General Chief Complaint: Headache Stated Complaint: headaches,face is numb Time Seen by Provider: 03/17/20 11:15 Source: patient Mode of arrival: Ambulatory Limitations: no limitations History of Present Illness HPI Narrative: The patient is a 34-year-old male nonsmoker with family history of aneurysms and personal history of GERD who presents with a chief complaint of a headache for the past few days. He denies any nausea or vomiting, lightheadedness or dizziness. He has tried Tylenol and Motrin at home. He saw his PCP referred him to the emergency department for emergent imaging as he has had some transient numbness on his face. He states it comes and goes with no alleviating or exacerbating factors, and that the numbness is on both sides sometimes around his mouth. The only thing he has taken today is Tylenol which was given to him in the emergency department. He denies any confusion but states he feels like he isthinking slow, denies any thunderclap sensation. He denies any confusion or visual deficits. He states overall he feels tired. Related Data Home Medications Medication Instructions Recorded Confirmed No Known Home Medications 05/26/18 05/26/18 Previous Rx's Medication Instructions Recorded hydromorphone 2 mg PO Q4H PRN #14 tab 05/28/18 naproxen 500 mg PO BID #20 tab 05/28/18 Allergies Allergy/AdvReac Type Severity Reaction Status Date / Time Penicillins Allergy Intermediate HIVES Verified 05/25/18 23:22 Review of Systems <LISBETH Sigala - Last Filed: 03/17/20 18:54> Review of Systems Narrative: GENERAL: Denies chills, fatigue, malaise, fever, sweats. HEENT: Denies sinus pain, ear pain, sore throat, difficulty swallowing, dizziness. RESPIRATORY: Denies dyspnea, cough, wheezing, hemoptysis, sputum. CARDIOVASCULAR: Denies chest pain, palpitations, orthopnea, edema, GASTROINTESTINAL: Denies nausea, vomiting, abdominal pain, diarrhea, constipation, melena. : Denies dysuria, frequency, incontinence, hematuria, urinary retention. MUSCULOSKELETAL: denies weakness, joint pain, or bony pain SKIN: Denies rash, skin lesions, or other NEUROLOGIC: See HPI PSYCHIATRIC: No concerning psychosocial issues. 12 point review of systems is negative except for those stated above Patient History <LISBETH Sigala - Last Filed: 03/17/20 18:54> Medical History GERD (gastroesophageal reflux disease) (Acute) Surgical History S/P wrist surgery (Acute) Family History Other Kidney stones Social History household members: significant other and children Smoking Status: Never smoker Smoking Status: Never smoker alcohol intake frequency: a few times a month Substance Use Type: does not use Exam <LISBETH Sigala - Last Filed: 03/17/20 18:54> Narrative Exam Narrative: GENERAL: This is a well-nourished, well-developed patient, no acute distress HEAD: Atraumatic. Normocephalic. No temporal or scalp tenderness. EYES: Pupils equal round and reactive. Extraocular motions intact. No scleral icterus. No injection or drainage. ENT: Nose without bleeding, purulent drainage or septal hematoma. Throat without erythema, tonsillar hypertrophy or exudate. Uvula midline. Airway patent. NECK: Trachea midline. No JVD or lymphadenopathy. Supple, nontender, no meningeal signs. CARDIOVASCULAR: Regular rate and rhythm RESPIRATORY: Clear to auscultation. Breath sounds equal bilaterally. No wheezes, rales, or rhonchi. EXTREMITIES: No clubbing, cyanosis, or edema. No joint tenderness, effusion, or edema noted. BACK: Nontender without deformity or crepitance. No flank tenderness. NEURO: AOx3. Stable gait. Strength is equal upper and lower extremities bilaterally. Clear speech. No gross cranial nerve deficit. NIH is 0. Sensation intact all over face, with multiple objects. SKIN: No rash or erythema on visible skin Initial Vital Signs Initial Vital Signs: Vital Signs Temperature 98.4 F 03/17/20 09:23 Pulse Rate 56 L 03/17/20 09:23 Respiratory Rate 14 03/17/20 09:23 Blood Pressure 139/80 03/17/20 09:23 Pulse Oximetry 100 03/17/20 09:23 <Almaz Barber DO - Last Filed: 03/17/20 18:56> Initial Vital Signs Initial Vital Signs: Vital Signs Temperature 98.4 F 03/17/20 09:23 Pulse Rate 56 L 03/17/20 09:23 Respiratory Rate 14 03/17/20 09:23 Blood Pressure 139/80 03/17/20 09:23 Pulse Oximetry 100 03/17/20 09:23 Scores <LISBETH Sigala - Last Filed: 03/17/20 18:54> GCS Kristina coma scale eye opening: Spontaneous Kristina coma scale verbal response: Orientated [place] coma scale motor response: Obey commands Kristina coma scale total score: 15 NIH Stroke Scale Level of Conciousness: Alert, keenly responsive Ask month/age: Answers both questions correctly. Open/close eyes, close hand: Performs both tasks correctly Best gaze horizontal: Normal Visual mcmahan: No visual loss Facial palsy: Normal symetrical movement Left arm drift: No drift for full 10 sec Right arm drift: No drift for full 10 sec Left leg drift: No drift for full 10 sec Right leg drift: No drift for full 10 sec Limb ataxia: Absent Sensory on face/arms/legs: Normal, no sensory loss Best language: No aphasia, normal Dysarthria: Normal Extinction or inattention: No abnormality Total NIH Stroke scale score: 0 Course <LISBETH Sigala - Last Filed: 03/17/20 18:54> Orders Ordered: ED Orders 03/17/20 10:31 CT head/brain wo con Stat 03/17/20 12:00 EKG-12 Lead Stat Discontinued Medications Acetaminophen (Tylenol) 650 mg PO Q4HR PRN PRN Reason: Fever/Mild Pain (1-3) Last Admin: 03/17/20 14:02 Dose: 325 mg Documented by: Admin: 03/17/20 11:04 Dose: 650 mg Documented by: BRANDON Hydrocodone Bitart/Acetaminophen ([place] 5/325) 1 tab PO NOW ONE Stop: 03/17/20 13:22 Last Admin: 03/17/20 14:01 Dose: 1 tab Documented by: DAWN Diphenhydramine HCl (Benadryl) 25 mg PO NOW ONE Stop: 03/17/20 13:58 Last Admin: 03/17/20 14:09 Dose: 25 mg Documented by: DAWN Ketorolac Tromethamine (Toradol) 60 mg IM NOW ONE Stop: 03/17/20 11:46 Last Admin: 03/17/20 12:36 Dose: 60 mg Documented by: LEOBARDO Vital Signs Vital signs: Vital Signs - 8 hr 03/17/20 14:13 03/17/20 15:16 Pulse Rate 66 56 L Respiratory Rate 16 Blood Pressure 123/85 Blood Pressure [Right Arm] 141/88 H Pulse Oximetry 98 99 <Almaz Barber DO - Last Filed: 03/17/20 18:56> Orders Ordered: ED Orders 03/17/20 10:31 CT head/brain wo con Stat 03/17/20 12:00 EKG-12 Lead Stat Discontinued Medications Acetaminophen (Tylenol) 650 mg PO Q4HR PRN PRN Reason: Fever/Mild Pain (1-3) Last Admin: 03/17/20 14:02 Dose: 325 mg Documented by: Admin: 03/17/20 11:04 Dose: 650 mg Documented by: BRANDON Hydrocodone Bitart/Acetaminophen ([place] 5/325) 1 tab PO NOW ONE Stop: 03/17/20 13:22 Last Admin: 03/17/20 14:01 Dose: 1 tab Documented by: DAWN Diphenhydramine HCl (Benadryl) 25 mg PO NOW ONE Stop: 03/17/20 13:58 Last Admin: 03/17/20 14:09 Dose: 25 mg Documented by: DAWN Ketorolac Tromethamine (Toradol) 60 mg IM NOW ONE Stop: 03/17/20 11:46 Last Admin: 03/17/20 12:36 Dose: 60 mg Documented by: LEOBARDO Vital Signs Vital signs: Vital Signs - 8 hr 03/17/20 14:13 03/17/20 15:16 Pulse Rate 66 56 L Respiratory Rate 16 Blood Pressure 123/85 Blood Pressure [Right Arm] 141/88 H Pulse Oximetry 98 99 MDM - Headache <LISBETH Sigala - Last Filed: 03/17/20 18:54> Imaging Data CT scan - head: Radiologist's Impression: [address] [place] [address] CT Scan Report Signed Patient: Jordan Shields JR BMR#: [id number] : 1985Acct:[id number] Age/Sex: 34 / MDate of Service: 03/17/20 Loc: ED Accession Number: [id number] Procedure: CT head/brain wo con Ordering Provider: Almaz Barber D.O. PROCEDURE: CT HEAD/BRAIN WO CON INDICATIONS: headache facial numbness TECHNIQUE: Noncontrast 4.5 mm thick angled axial sections acquired from the foramen magnum to the vertex, with coronal and sagittal reformats. For radiation dose reduction, the following was used: automated exposure control, adjustment of mA and/or kV according to patient size. COMPARISON: None. FINDINGS: Image quality: Excellent. CSF spaces: Basal cisterns are patent. No extra-axial fluid collections. Ventricles are normal in size and shape. There is a 5 mm calcified density in the right frontal area at midline along the falx, and a 9 mm calcified density in the left parietal area on the falx, which could be small meningiomas. Brain: No midline shift. No intracranial masses or hemorrhage. Clements-white matter interface is normal. Skull and face: Calvarium and visualized facial bones are intact, without suspicious lesions. Sinuses: There is a 7 mm soft tissue density in the right ethmoid sinus, compatible with mucus retention cyst or polyp. Mastoids are clear. IMPRESSION: 1. No acute intracranial abnormality. 2. A 7 mm mucus retention cyst or polyp in the right ethmoid sinus. Dictated by: Hany Chua M.D. on 03/17/2020 at 10:42 Approved by: Hany Chua M.D. on 03/17/2020 at 10:57 [facility] Narrative Medical decision making narrative: The patient is a 34-year-old male who presents with a chief complaint of transient facial numbness that comes and goes, mostly on the right side but noted to be bilateral in history taking. He has had headaches for the past few days. He was sent by his primary care provider, received a head CT to evaluate for any intracranial abnormalities knows he has a family history of aneurysm. He had no acute findings on his head CT, who was found to be neurologically intact with sensation intact bilateral face. We attempted to treat his headache in the emergency department with Tylenol, ketorolac etcetera and he felt slightly improved. I discussed at length that follow-up with primary care provider would be appropriate. Discussed the finding of a 7 mm mucous retention cyst or polyp is sinus. Encourage PCP follow-up in the next few days, discussed the possibility of prodrome for shingles given the tingling, electricity feeling in his face. Encouraged monitoring for rash. Discussed come back to ER for acute concerns. Patient has no questions or concerns upon discharge and states understanding of return precautions as well as follow-up care. Discharge Plan Departure Patient Disposition: Home Clinical Impression: Facial tingling sensation Headache Qualifiers: Headache type: unspecified Headache chronicity pattern: unspecified pattern Intractability: not intractable Qualified Code(s): R51 - Headache Discharge Date/Time: 03/17/20 15:17 Instructions: DI for Headache, DI for Numbness/tingling Activity Restrictions/Additional Instructions: Thank you for trusting us with your care today. Please go home and get some rest. I have given you a work note for few days off so you can rest We did did a head CT today, which showed no evidence of bleeding in her brain or masses etcetera We did note a 7 mm cyst or polyp in your right ethmoid sinus. The ethmoid sinus is located essentially between the eyes, a bit back. Please follow-up with primary care provider in the next few days. Please come back to the emergency department for any acute concerns such as neurological changes, severe shortness of breath, concern of heart attack or stroke Prescriptions: No Action No Known Home Medications RF: 0 hydromorphone 2 mg tablet 2 mg PO Q4H PRN (Reason: pain) Qty: 14 RF: 0 naproxen 500 mg tablet 500 mg PO BID Qty: 20 RF: 0 Referrals: Jordan Fletcher DO [Primary Care Provider] - Stand Alone Forms: Work Release Note <Almaz Barber DO - Last Filed: 03/17/20 18:56> Cosign ED Attending Jorgeature Attestation: I was immediately available in the department for consultation. Documentation has been reviewed. I agree with assessment and plan.
[2020-03-17] MEDS: KETOROLAC 60 MG/2 ML VIAL IM (12:36)
--- NOTE | 2020-03-17 13:55 | PC.NURSE ---
as 1334 pt did not have a ride secured.
[2020-03-17] MEDS: HYDROCODONE/ACET 5/325 TABLET 1 TAB PO (14:01)
--- NOTE | 2020-03-17 14:03 | PC.NURSE ---
albino lockhart VO to reduce tylenol to 325mg po.
[2020-03-17] MEDS: diphenhydrAMINE 25 MG TABLET PO (14:09)
[2020-03-17 14:13] VITALS: BP 141/88; PULSE 66; RESP 16; O2SAT 98
[2020-03-17 15:16] VITALS: BP 123/85; PULSE 56; O2SAT 99
== END 2020-03-17 15:17 | disposition home or self-care (01) ==
PROVIDERS: Emergency Provider Nurse Practitioner Family; PCP Family Medicine
DX: R51 Headache (principal); R20.2 Paresthesia of skin; J34.1 Cyst and mucocele of nose and nasal sinus; R29.700 NIHSS score 0; R40.2412 Glasgow coma scale score 13-15, at arrival to emergency department
CPT/HCPCS: 70450; 93005; 96372; 99284; J1885

== ENCOUNTER 2020-03-20 09:10 | Emergency (ER) | payer OTHER, SELFPAY ==
[2018-05-26 04:38] VITALS: BMI 226.9
[2020-03-20 09:17] VITALS: BP 155/91; PULSE 58; RESP 21; TEMP 36.7; O2SAT 99; BMI 29.1
--- NOTE | 2020-03-20 09:52 | ED_ITS ---
HPI - Headache General Chief Complaint: Upper Respiratory Symptoms Stated Complaint: headache,cough Time Seen by Provider: 03/20/20 09:38 Source: patient and old records reviewed Mode of arrival: Ambulatory Limitations: no limitations History of Present Illness HPI Narrative: Patient is a 34-year-old male who presents with headache, his a family history of aneurysms and was seen and evaluated here 3 days ago, he had a head CT at that time which showed no acute abnormality and a small retention cyst in the right ethmoid sinus. He states that his headache was gone when he left however it returns he took some Tylenol at home has not helped. He prefers a dark room but light does not seem to make it any worse he denies any nausea or vomiting no weakness. He does have increased pain on the right side of his face but no significant swelling. He also states that his neck feels tight but he has full range of motion. He has no rash or vision changes. He also has are dry nonproductive cough. He denies any fever or shortness of breath. MD Complaint: headache Related Data Home Medications Medication Instructions Recorded Confirmed No Known Home Medications 05/26/18 05/26/18 Previous Rx's Medication Instructions Recorded hydromorphone 2 mg PO Q4H PRN #14 tab 05/28/18 naproxen 500 mg PO BID #20 tab 05/28/18 Allergies Allergy/AdvReac Type Severity Reaction Status Date / Time Penicillins Allergy Intermediate HIVES Verified 03/20/20 09:17 Review of Systems Review of Systems Narrative: GENERAL: Denies chills, fatigue, malaise, fever, sweats, travel HEENT: Denies sinus pain, ear pain, sore throat, difficulty swallowing, neck pain RESPIRATORY: Denies dyspnea, cough, wheezing, hemoptysis, sputum. CARDIOVASCULAR: Denies chest pain, palpitations, orthopnea, edema GASTROINTESTINAL: Denies nausea, vomiting, abdominal pain, diarrhea, constipation, melena. : Denies dysuria, frequency, incontinence, hematuria, urinary retention, flank pain. MUSCULOSKELETAL: Denies weakness, joint pain, or bony pain SKIN: No rash, no erythema, no pruritus NEUROLOGIC: See HPI PSYCHIATRIC: No concerning psychosocial issues. 12 point review of systems is negative except for those stated above and HPI Patient History Medical History GERD (gastroesophageal reflux disease) (Acute) Surgical History S/P wrist surgery (Acute) Family History Other Kidney stones Social History household members: significant other and children Smoking Status: Never smoker Smoking Status: Never smoker alcohol intake frequency: a few times a month Substance Use Type: does not use Exam Initial Vital Signs Initial Vital Signs: Vital Signs Temperature 98.0 F 03/20/20 09:17 Pulse Rate 58 L 03/20/20 09:17 Respiratory Rate 21 03/20/20 09:17 Blood Pressure 155/91 H 03/20/20 09:17 Pulse Oximetry 99 03/20/20 09:17 GENERAL: Well-appearing, well-nourished and in no acute distress. HEENT: Head atraumatic,EOMI, pupils reactive, face symmetric, moist mucous membranes he is tender over his right zygomatic arch area but no swelling or erythema CARDIOVASCULAR: Regular rate and rhythm without murmurs, rubs or gallops. RESPIRATORY: Breath sounds equal bilaterally, no wheezes rales or rhonchi. ABDOMEN: Soft, nontender. Normoactive bowel sounds all 4 quadrants. No guarding or rebound. EXTREMITIES: Normal range of motion, no clubbing or edema. Neurovascularly intact NEUROLOGICAL: Alert and oriented x4.Normal gait and speech. Cranial nerves II through XII grossly intact. strength equal bilaterally, no dysarthria or aphasia, sensation in tact to soft touch bilaterally, no visual changes, no facial droop SKIN: Warm, dry, no laceration, no petechiae, no rashes or lesions. Course Orders Ordered: ED Orders 03/20/20 09:56 CT head/brain wo con Stat 03/20/20 10:01 Basic Metabolic Panel Stat Complete Blood Count AUTO DIFF Stat Discontinued Medications Hydromorphone HCl (Dilaudid) 0.5 mg IV NOW ONE Stop: 03/20/20 12:11 Last Admin: 03/20/20 12:13 Dose: 0.5 mg Documented by: ANGELIQUE Sodium Chloride (Normal Saline 0.9%) 1,000 mls @ 1,000 mls/hr IV BOLUS ONE Stop: 03/20/20 10:52 Last Infusion: 03/20/20 11:21 Dose: 0 mls/hr Documented by: Admin: 03/20/20 10:07 Dose: 1,000 mls/hr Documented by: ANGELIQUE Ketorolac Tromethamine (Toradol) 30 mg IV NOW ONE Stop: 03/20/20 09:54 Last Admin: 03/20/20 10:06 Dose: 30 mg Documented by: ANGELIQUE Morphine Sulfate (Morphine) 4 mg IV NOW ONE Stop: 03/20/20 11:18 Last Admin: 03/20/20 11:21 Dose: 4 mg Documented by: ANGELIQUE Ondansetron HCl (Zofran) 4 mg IV NOW ONE Stop: 03/20/20 11:18 Last Admin: 03/20/20 11:21 Dose: 4 mg Documented by: ANGELIQUE Vital Signs Vital signs: Vital Signs - 8 hr 03/20/20 09:17 03/20/20 11:54 03/20/20 13:07 Temperature 98.0 F Pulse Rate 58 L 62 61 Respiratory Rate 21 15 18 Blood Pressure 155/91 H 125/76 Blood Pressure [Left Arm] 127/83 Pulse Oximetry 99 100 98 MDM - Headache Lab Data Attestation: I reviewed the patient's lab results. Result diagrams: 03/20/20 10:01 03/20/20 10:01 Labs: Lab Results 03/20/20 03/20/20 Range/Units 10:01 10:01 WBC 9.2 (4.5-11.0) X10^3/uL RBC 5.38 (4.5-5.9) X10^6/uL Hgb 16.6 (13.5-17.5) g/dL Hct 47.3 (41-53) % MCV 87.9 (80-100) fL MCH 30.9 (26-34) PG MCHC 35.2 (30-36) % RDW 13.0 (11.6-14.8) % Plt Count 160 (150-400) X10^3/uL Neut % (Auto) 67.2 (50-75) % Lymph % (Auto) 24.0 L (25-40) % [place] % (Auto) 7.8 (3-14) % Eos % (Auto) 0.7 L (2-4) % Baso % (Auto) 0.3 (0-2) % Neut # (Auto) 6200 (2755-4375) /uL Lymph # (Auto) 2200 (3994-6055) /uL [place] # (Auto) 700 (0-900) /uL Eos # (Auto) 100 (0-450) /uL Baso # (Auto) 0 (0-100) /uL Sodium 141 (137-145) mmol/L Potassium 3.9 (3.4-5.1) mmol/L Chloride 106 (98-107) mmol/L Carbon Dioxide 28 (22-32) mmol/L BUN 15 (9-20) mg/dL Creatinine 1.28 H (0.66-1.25) mg/dL Estimated GFR > 60.0 (>60) mL/min BUN/Creatinine Ratio 11.7 (6-22) Glucose 100 (70-100) mg/dL Calcium 9.7 (8.4-10.2) mg/dL Imaging Data CT scan - head: Radiologist's Impression: Impression negative head CT no evidence of acute stroke hemorrhage or mass MDM Narrative Medical decision making narrative: Radiology called to inform me that he cannot dictate now however the head CT was negative. There is no mention of cyst on the right ethmoid sinus of 7 mm which was previously mentioned. Patient does have pain on the right side however I think this is an incidental finding rather than come because of his pain. He is afebrile no leukocytosis no sign of meningitis. Head CT again does not show any acute abnormality. He does have a family history of aneurysms however no sign of rupture. He did not get relief with Toradol. He was given morphine which she says helps some but now is already wearing off. At this time patient needs to follow-up with PCP Possible sinusitis however he is afebrile without leukocytosis and this has not been going on for 10 days so antibiotics are not indicated. Sinusitis also not mentioned on either CT. Discharge Plan Departure Patient Disposition: Home Clinical Impression: Headache Qualifiers: Headache type: unspecified Headache chronicity pattern: acute headache Intractability: not intractable Qualified Code(s): R51 - Headache Discharge Date/Time: 03/20/20 13:09 Instructions: DI for Headache Activity Restrictions/Additional Instructions: *You have been diagnosed with headache *What to do: I do not believe this cyst on your scan is causing pain in the right cheek. Recommend that he follow up with her primary care provider you may need further testing such as an MRI, or to see a neurologist recommend that you reduce brain stimuli and rest in a dark quiet room. Increase fluid intake. And is possibly of sinusitis however at this time is not indicated for antibiotics *Continue to take medications as directed Ibuprofen 800 mg every 8 hours if needed for pain with food Tylenol 1000 mg every 6 hours if needed for pain do not exceed more than 4000 mg in 24 hours *Follow up with your primary care provider in 2-3 days *Return to ER if you should have increasing headache weakness persistent vomiting or nausea fever increased neck pain numbness tingling or any new, worsening or concerning symptoms Prescriptions: No Action No Known Home Medications RF: 0 hydromorphone 2 mg tablet 2 mg PO Q4H PRN (Reason: pain) Qty: 14 RF: 0 naproxen 500 mg tablet 500 mg PO BID Qty: 20 RF: 0 Referrals: Jordan Fletcher DO [Primary Care Provider] -
--- NOTE | 2020-03-20 09:56 | DI.CT.S_ITS ---
PROCEDURE: CT HEAD/BRAIN WO CON INDICATIONS: Worsening headache TECHNIQUE: Noncontrast 4.5 mm thick angled axial sections acquired from the foramen magnum to the vertex, with coronal and sagittal reformats. For radiation dose reduction, the following was used: automated exposure control, adjustment of mA and/or kV according to patient size. COMPARISON: None. FINDINGS: Image quality: Excellent. CSF spaces: Basal cisterns are patent. No extra-axial fluid collections. Ventricles are normal in size and shape. Brain: No midline shift. No intracranial masses or hemorrhage. Clements-white matter interface is normal. Skull and face: Calvarium and visualized facial bones are intact, without suspicious lesions. Sinuses: A single right ethmoid air cell remains opacified. Paranasal sinuses and mastoids are otherwise clear. IMPRESSION: Negative head CT. No evidence acute stroke, hemorrhage, or mass. Dictated by: Erik Kim M.D. on 03/20/2020 at 9:27 Approved by: Erik Kim M.D. on 03/20/2020 at 9:33
[2020-03-20] MEDS: KETOROLAC 60 MG/2 ML VIAL 30 MG IV (10:06)
[2020-03-20] MEDS: SODIUM CHLORIDE 0.9% 1,000 ML 1000 ML IV (10:07)
[2020-03-20 10:24] LABS: Add Manual Diff / Slide Review NO; Basophils Absolute Auto 0 /uL (0-100); Basophils Percent Auto 0.3 % (0-2); Eosinophils Absolute Auto 100 /uL (0-450); Eosinophils Percent Auto 0.7 % (2-4); Hematocrit 47.3 % (41-53); Hemoglobin 16.6 g/dL (13.5-17.5); Lymphocytes Absolute Auto 2200 /uL (1100-4500); Mean Corpuscular HGB Conc 35.2 % (30-36); Mean Corpuscular Hemoglobin 30.9 PG (26-34); Mean Corpuscular Volume 87.9 fL (80-100); Monocytes Absolute Auto 700 /uL (0-900); Monocytes Percent Auto 7.8 % (3-14); Neutrophils Absolute Auto 6200 /uL (1500-7000); Neutrophils Percent Auto 67.2 % (50-75); Platelet Count 160 X10^3/uL (150-400); Red Blood Cell Count 5.38 X10^6/uL (4.5-5.9); White Blood Cell Count 9.2 X10^3/uL (4.5-11.0)
[2020-03-20 10:27] LABS: BUN Creatinine Ratio 11.7 (6-22); Blood Urea Nitrogen 15 mg/dL (9-20); Calcium 9.7 mg/dL (8.4-10.2); Carbon Dioxide 28 mmol/L (22-32); Chloride 106 mmol/L (98-107); Estimated Glomerular Filt Rate > 60.0 mL/min (>60); Glucose 100 mg/dL (70-100); HEMOLYSIS < 15 (0-50); Potassium 3.9 mmol/L (3.4-5.1); Sodium 141 mmol/L (137-145)
[2020-03-20] MEDS: MORPHINE 4 MG/ML INJ IV (11:21)
[2020-03-20] MEDS: ONDANSETRON 4 MG/2 ML INJ IV (11:21)
[2020-03-20 11:54] VITALS: BP 127/83; PULSE 62; RESP 15; O2SAT 100
[2020-03-20] MEDS: HYDROMORPHONE 0.5 MG INJ IV (12:13)
[2020-03-20 13:07] VITALS: BP 125/76; PULSE 61; RESP 18; O2SAT 98
== END 2020-03-20 13:09 | disposition home or self-care (01) ==
PROVIDERS: Emergency Provider Emergency Medicine; PCP Family Medicine
DX: R51 Headache (principal); R05 Cough
CPT/HCPCS: 36415; 70450; 80048; 85025; 96361; 96374; 96375; 99284; J1170; J1885; J2270; J2405

== ENCOUNTER → 2020-05-11 09:02 | Outpatient (CLI) | payer OTHER, SELFPAY ==
[2018-05-26 04:38] VITALS: BMI 226.9
[2020-05-13 09:08] LABS: COVID19 Sendout Not Detected (Not Detected)
== END ==
PROVIDERS: PCP Family Medicine; Visit Provider Physician Assistant
DX: R50.9 Fever, unspecified (principal); Z11.59 Encounter for screening for other viral diseases
CPT/HCPCS: 87635

== ENCOUNTER 2021-03-05 17:30 | Emergency (ER) | payer OTHER, SELFPAY ==
[2018-05-26 04:38] VITALS: BMI 226.9
[2021-03-05 17:40] VITALS: BP 146/76; PULSE 77; RESP 16; TEMP 36.6; O2SAT 100
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
[2021-03-05] MEDS: CYCLOBENZAPRINE 10 MG TABLET PO (18:45)
[2021-03-05] MEDS: HYDROCODONE/ACET 5/325 TABLET 1 TAB PO (18:46)
== END 2021-03-05 18:52 | disposition home or self-care (01) ==
PROVIDERS: Emergency Provider Emergency Medicine; PCP Family Medicine
DX: M54.5 Low back pain (principal); M54.2 Cervicalgia; V89.2XXA Person injured in unspecified motor-vehicle accident, traffic, initial encounter
CPT/HCPCS: 70450; 72125; 99284